=== PATIENT | female | born 1965 | race Caucasian/White ===

== ENCOUNTER 2019-04-05 03:42 | Inpatient (IN) | payer OTHER ==
[2019-04-05] VITALS (18 sets, daily range): BP systolic 82–126
[~2019-04-05] VITALS: Ht 167.6 cm; Wt 59.0 kg
--- NOTE | 2019-04-05 03:49 | NUR ---
Placed in room 2 . Placed on color television console monitor, blood pressure machine and pulse oximeter. To gown for exam. Side rails up.
--- NOTE | 2019-04-05 04:00 | NUR ---
Pt came to the ED for multiple sclerosis by sister for SOB. Reports that she awake about 2 AM this morning and she had some neck pain with SOB. Pt has a fever with diarrhea. No other complaints/injuries noted. Will cont. to monitor.
--- NOTE | 2019-04-05 04:02 | NUR ---
Medication reconciliation completed with information provided by patients sister. Any prior medication reconciliation on file was reviewed and corrected.
--- NOTE | 2019-04-05 04:10 | NUR ---
Per pts sister, she states that pt's blood pressure is usually low. ER MD made aware. He states, "Hang the levophed by her just in case it's needed." BP is 96/40.
[2019-04-05] MEDS ORDERED: NACL 0.9% 1,000 ML IV ONE ×2 (05:00→05:30)
[2019-04-05] MEDS ORDERED: ACETAMINOPHEN 500 MG TABLET PO ONE (05:00)
[2019-04-05] MEDS ORDERED: ACETAMINOPHEN 650 MG SUPP.RECT RC ONE (05:17)
[2019-04-05] MEDS ORDERED: VANCOMYCIN HCL 1,000 MG in NS 250 ML IV ONE (05:30)
[2019-04-05] MEDS ORDERED: PIPERACILLIN/TAZO 3.375 GM in NS 50 ML IV ONE (05:30)
[2019-04-05] MEDS ORDERED: AZITHROMYCIN 500 MG in NS 250 ML IV ONE (05:30)
[2019-04-05 05:47] LABS: MEAN CORPUSCULAR HEMOGLOBIN 30 pg (27-31)
[2019-04-05 05:53] LABS: HEMATOCRIT 33.1 % (36-48); MEAN CORPUSCULAR HGB CONC 33 % (32-36); MEAN CORPUSCULAR VOLUME 91 fL (79.0-98.0); PLATELET COUNT (AUTO) 101 K/uL (130-430); RED BLOOD CELL COUNT(AUTO) 3.65 MIL/uL (4.2-6.2); RED CELL DISTRIBUTION WIDTH 13.8 % (9.0-15.0)
[2019-04-05 05:59] LABS: CALCIUM 8.5 mg/dL (8.4-11.0); CREATININE 0.65 mg/dL (0.55-1.30); WHITE BLOOD COUNT (AUTO) 1.8 K/uL (4.8-10.8)
--- NOTE | 2019-04-05 05:59 | NUR ---
Critical Lab value of WBC 1.8. ER made aware.
[2019-04-05 06:04] LABS: ALBUMIN 2.6 g/dL (3.4-4.8); INR 1.1 (0.8-1.2); PROTHROMBIN TIME 10.6 SECS (9.5-12.5); TOTAL BILIRUBIN 2.8 mg/dL (0.0-1.0)
[2019-04-05 06:08] LABS: POTASSIUM 2.4 mmol/L (3.5-5.1)
[2019-04-05] MEDS ORDERED: NOREPINEPHRINE BITARTRATE 4 MG in NS 246 ML IV ONE (06:15)
[2019-04-05] MEDS ORDERED: PIPERACILLIN/TAZOBACTAM 3.375 GM/VIAL (ZOSYN) IV ONE (06:25)
[2019-04-05] MEDS ORDERED: VANCOMYCIN HCL 1000 MG/VIAL IV ONE (06:27)
[2019-04-05] MEDS ORDERED: AZITHROMYCIN 500 MG/VIAL (ZITHROMAX) IV ONE (06:27)
[2019-04-05] MEDS ORDERED: POTASSIUM CHLORIDE 20 MEQ TAB.PRT.SR PO ONE (06:45)
[2019-04-05] MEDS ORDERED: MAGNESIUM SULFATE 50 ML IV ONE (06:45)
[2019-04-05] MEDS ORDERED: KCL 40 mEq in 100 mL (PREMIX) 100 ML IV ONE (06:45)
--- NOTE | 2019-04-05 06:45 | NUR ---
# 16 FR Glasgow catheter with use of sterile technique. Immediate return of 0 cc yellow with sediment urine noted. Bedside drainage bag placed below level of bladder. Urine sample collected and sent to lab. Pt tolerated procedure well. Patient arrived with glasgow in place, changed due to standard of practice prior to admission. Patient unable to toilet self.
--- NOTE | 2019-04-05 06:50 | NUR ---
Unable to retrieve urine sample. No urine in glasgow bag.
--- NOTE | 2019-04-05 06:51 | NUR ---
Informed charge nurse and ER MD that we were unable to get urine due to pt urinating while glasgow was being placed. However, admit orders were put in.
[2019-04-05 06:54] LABS: ATYPICAL LYMPHOCYTES % 0 % (0-0); BAND % (MANUAL) 6 % (0-6); BASOPHILS % (MANUAL) 0 % (0-2); EOSINOPHILS % (MANUAL) 4 % (0-7); LYMPHOCYTES % (MANUAL) 7 % (20-46); MONOCYTES % (MANUAL) 5 % (0-11)
[2019-04-05] MEDS ORDERED: TERI14TA PO (07:00)
[2019-04-05] MEDS ORDERED: CALC200T47 PO (07:00)
[2019-04-05] MEDS ORDERED: [UNRECOGNIZED DRUG - OTHER] (07:00)
[2019-04-05] MEDS ORDERED: CHOL500037 PO (07:00)
[2019-04-05] MEDS ORDERED: ROSU10TA2 PO (07:00)
[2019-04-05] MEDS ORDERED: METH1POW38 PO (07:00)
[2019-04-05] MEDS ORDERED: ESCI10TA PO (07:00)
--- NOTE | 2019-04-05 07:01 | NUR ---
Medication reconciliation completed with information provided by FAMILY MEMBER. Any prior medication reconciliation on file was reviewed and corrected.
--- NOTE | 2019-04-05 07:15 | NUR ---
Opening Note Received plan of care via sbar from endorsing nurse Dexter VILLANUEVA.
[2019-04-05] MEDS ORDERED: NOREPINEPHRINE 4 MG/4 ML VIAL IV ONE ×2 (07:30→17:57)
--- NOTE | 2019-04-05 07:38 | NUR ---
Patient will be admitted to care of MD. Admitted to ICU unit. Will go to room 3. Belongings list completed. Summary report printed. Report will be given at bedside.
--- NOTE | 2019-04-05 07:45 | NUR ---
Patient will be admitted to care of Dr. Starr. Admitted to ICU unit. Will go to room 3 . Belongings list completed. Summary report printed. Report given at bedside to Avtar.
--- NOTE | 2019-04-05 07:45 | NUR ---
Transfer to ICU 3 via ACLS protocol. Licensed nurse present. IV present no signs or symptoms of infiltration.
--- NOTE | 2019-04-05 08:00 | NUR ---
ADMISSION NOTE Received patient from ER via gurney. Patient admitted with diagnosis of Urosepsis. Patient is awake, alert, oriented X 1. Patient oriented to hospital room, call light, toileting, pain management and safety-teach back done. Personal belongings checked and Belongings List documented. Call light within reach.
--- NOTE | 2019-04-05 08:06 | NUR ---
CONSULT PULMO. DR. CARRILLO CALLED SPOKE TO RENY DIALED [phone] ORDERED BY Balwinder WEST
--- NOTE | 2019-04-05 08:09 | NUR ---
CONSULT ID DR. FERNANDEZ CALLED SPOKE TO RENY DIALED [phone] ORDERED BY Balwinder WEST
[2019-04-05] MEDS: D5/0.45 NS 1,000 ML IV SCH ×3 (09:14→22:00)
[2019-04-05] MEDS ORDERED: LevALBUTEROL HCL 1.25 MG/0.5 ML *CONC.* VIAL.NEB (XOPENEX CONC.) INH PRN (09:30)
[2019-04-05] MEDS ORDERED: IPRATROPIUM BROM 0.5 MG/2.5 ML VIAL.NEB (ATROVENT) INH PRN (09:30)
--- NOTE | 2019-04-05 09:30 | NUR ---
Patient blood pressure 182/115 and HR of 144. Reported to Dr. Allen and received orders for 5 mg Labetalol IVP once. Also requested PT to be NPO for now.
--- NOTE | 2019-04-05 09:39 | NUR ---
KATE ALONSO. CALLED LEFT A VOICE MESSAGE FOR ISATU DIALED [phone]
[2019-04-05] MEDS ORDERED: LABETALOL 100 MG/ 20ML VIAL IVP ONE (09:45)
[2019-04-05] MEDS ORDERED: LORazepam 2 MG/ML VIAL IVP PRN (11:45)
[2019-04-05] MEDS ORDERED: ONDANSETRON HCL 4 MG/2 ML VIAL IVP PRN (11:45)
[2019-04-05] MEDS ORDERED: [UNRECOGNIZED DRUG - OTHER] SCH (11:45)
[2019-04-05] MEDS ORDERED: NON-FORMULARY MEDICATION (Cholecalciferol* (Vitamin D3*) 50,000 UNIT) PO SCH (11:45)
--- NOTE | 2019-04-05 11:54 | NUR ---
CONSULT HEMATOLOGY DR. PATHAK CALLED SPOKE TO KAROLINA DIALED [phone] ORDERED BY Balwinder WEST
[2019-04-05] MEDS ORDERED: PIPERACILLIN/TAZO 3.375/DEX-IS 50 ML IV SCH (12:00)
[2019-04-05] MEDS: CEFEPIME 1 GM in D5W 50 ML IV SCH ×2 (12:24→20:53)
[2019-04-05] MEDS ORDERED: NS 500 ML IV ONE (12:30)
[2019-04-05] MEDS: LevALBUTEROL HCL 1.25 MG/0.5 ML *CONC.* VIAL.NEB (XOPENEX CONC.) INH SCH ×2 (13:41→19:46)
[2019-04-05] MEDS: IPRATROPIUM BROM 0.5 MG/2.5 ML VIAL.NEB (ATROVENT) INH SCH ×2 (13:41→19:46)
--- NOTE | 2019-04-05 14:09 | NUR ---
Called Dr. James Bertrand to report elevated HR of 148. Received orders for Cardizem drip start at 15 mg with goal of keeping heart rate < 110.
--- NOTE | 2019-04-05 14:32 | NUR ---
Called Dr. Jane to report the malfunction of the right IJ tata Cath. Per Dr. Jane he will not be able to make it today but will try to make it tomorrow night.
[2019-04-05] MEDS: DILTIAZEM HCL 125 MG in D5W 100 ML IV SCH ×2 (14:41→22:01)
--- NOTE | 2019-04-05 16:47 | NUR ---
S.T. SWALLOW EVAL SWALLOW EVAL COMPLETED. SISTER PRESENT. PT PRESENTS W/ MOD-SEV OROPHARYNGEAL DYSPHAGIA W/ EXTREMELY DELAYED BOLUS TRANSFER AND SWALLOW INITIATION. NO S/S OF ASPIRATION BUT RISK PRESENT D/T AFOREMENTIONED DELAYS. REC: NPO - ALTERNATIVE METHOD FOR FEEDING. RE-EVAL IN A DAY OR TWO INDICATED. NURSE MARY KAY NOTIFIED. G8996 CL G8997 CL G8998 CL NOMS LEVEL 3
[2019-04-05] MEDS: NOREPINEPHRINE BITARTRATE 4 MG in D5W 246 ML IV PRN (17:58)
--- NOTE | 2019-04-05 19:20 | NUR ---
PM ASSESSMENT Pt in bed with eyes open resting comfortably, no signs of acute distress or discomfort noted. Family at bedside. Pt on 2L via NC, tolerating well with O2 sats @ 96% and even and unlabored breathing. Pt has a R hand 20g infusing cardizem drip and levophed drip and a R AC 20g infusing D5 1/2 NS. Moody cath noted draining urine to gravity. SCD's noted to bilateral lower extremities. Bed is locked and in lowest position, call light within reach, will cont to monitor pt.
--- NOTE | 2019-04-05 19:23 | NUR ---
Closing Note provided plan of care via sbar to receiving nurse Wyatt VILLANUEVA.
[2019-04-05] MEDS: metroNIDAZOLE 250 mg/NS 50 ML IV SCH (21:59)
--- NOTE | 2019-04-05 22:10 | NUR ---
Pt in bed with eyes closed resting comfortably, no signs of acute distress or discomfort noted. Bed is locked and in lowest position, call light within reach, will cont to monitor.
--- NOTE | 2019-04-05 22:10 | NUR ---
Offered CHG bath to pt and educated family member on the importance of a CHG bath. Pt's family member stated that she had a bath yesterday. Pt's family member asked the pt if she wanted a bath tonight and pt nodded no. Pt's family member then stated "I think she'll be ok for tonight, maybe just wait until the day". Will cont to monitor pt.
[2019-04-05 22:22] LABS: BILIRUBIN,URINE 1+ (NEGATIVE); BLOOD, URINE 3+ (NEGATIVE); CLARITY/URINE CLOUDY (CLEAR); COLOR,URINE YELLOW (YELLOW); GLUCOSE,URINE NEGATIVE (NEGATIVE); KETONES,URINE NEGATIVE (NEGATIVE); LEUKOCYTE ESTERASE ,URINE 3+ (NEGATIVE); NITRITE, URINE POSITIVE (NEGATIVE); PROTEIN URINE 2+ (NEGATIVE); UROBILINOGEN,URINE 0.2 (0.2-1.0)
[2019-04-05 22:58] LABS: BACTERIA,URINE MANY /HPF (None Seen); MUCUS,URINE None Seen /LPF (None Seen); RBC,URINE >100 /HPF (0-3); URINE AMORPHOUS PHOSPHATES 3+ /HPF (None Seen); WBC,URINE >100 /HPF (0-3)
[2019-04-06] VITALS (27 sets, daily range): BP systolic 84–152
[2019-04-06] MEDS: LevALBUTEROL HCL 1.25 MG/0.5 ML *CONC.* VIAL.NEB (XOPENEX CONC.) INH SCH ×4 (00:24→19:58)
[2019-04-06] MEDS: IPRATROPIUM BROM 0.5 MG/2.5 ML VIAL.NEB (ATROVENT) INH SCH ×4 (00:24→19:58)
--- NOTE | 2019-04-06 02:13 | NUR ---
Pt in bed with eyes closed resting comfortably. No signs of acute distress or discomfort noted. Pt repositioned at this time, pt tolerated well. Will cont to monitor pt.
[2019-04-06] MEDS: metroNIDAZOLE 250 mg/NS 50 ML IV SCH ×3 (05:13→22:35)
[2019-04-06] MEDS: D5/0.45 NS 1,000 ML IV SCH (05:13)
[2019-04-06] MEDS: NOREPINEPHRINE BITARTRATE 4 MG in D5W 246 ML IV PRN ×2 (05:15→13:45)
[2019-04-06] MEDS: DILTIAZEM HCL 125 MG in D5W 100 ML IV SCH ×3 (05:16→22:35)
[2019-04-06 05:47] LABS: BASOPHILS # (AUTO) 0.1 K/uL (0.0-0.2); BASOPHILS % (AUTO) 0.3 % (0.0-2.0); EOSINOPHILS # (AUTO) 0.3 K/uL (0.0-0.4); EOSINOPHILS % (AUTO) 1.6 % (0.0-4.0); HEMATOCRIT 26.8 % (36-48); HEMOGLOBIN 8.8 g/dL (12.0-16.0); LYMPHOCYTES # (AUTO) 0.6 K/uL (1.0-5.5); LYMPHOCYTES % (AUTO) 2.9 % (20.5-51.5); MEAN CORPUSCULAR HEMOGLOBIN 30 pg (27-31); MEAN CORPUSCULAR HGB CONC 33 % (32-36); MEAN CORPUSCULAR VOLUME 91 fL (79.0-98.0); MONOCYTES # (AUTO) 0.9 K/uL (0.0-1.0); MONOCYTES % (AUTO) 4.7 % (1.7-9.3); NEUTROPHILS # (AUTO) 17.4 K/uL (1.8-7.7); NEUTROPHILS % (AUTO) 90.5 % (40.0-70.0); PLATELET COUNT (AUTO) 81 K/uL (130-430); RED BLOOD CELL COUNT(AUTO) 2.95 MIL/uL (4.2-6.2); RED CELL DISTRIBUTION WIDTH 14.1 % (9.0-15.0); RETICULOCYTE COUNT 0.9 % (0.5-1.5); WHITE BLOOD COUNT (AUTO) 19.3 K/uL (4.8-10.8)
--- NOTE | 2019-04-06 05:55 | NUR ---
CHG CHG bath given to pt at this time due to glasgow cath leaking. Chucks changed, dotty care, skin care and glasgow cath care performed. Pt tolerated procedure well. Will cont to monitor pt.
[2019-04-06 06:03] LABS: ALBUMIN 2.1 g/dL (3.4-4.8); CALCIUM 7.4 mg/dL (8.4-11.0); CREATININE 0.77 mg/dL (0.55-1.30); TOTAL BILIRUBIN 3.4 mg/dL (0.0-1.0)
--- NOTE | 2019-04-06 06:10 | NUR ---
CABEZAS CATH: # 16 FR Cabezas catheter with 10 cc bulb inserted with use of sterile technique. Bulb inflated with 10 cc sterile water. Immediate return of urine noted. Bedside drainage bag placed below level of bladder. Pt tolerated procedure well. Will cont to monitor pt.
[2019-04-06 06:22] LABS: POTASSIUM 2.6 mmol/L (3.5-5.1)
--- NOTE | 2019-04-06 06:50 | NUR ---
Dr. Stubbs in to see pt. New orders received, will endorse orders to juan VILLANUEVA.
[2019-04-06 06:55] LABS: C-REACTIVE PROTEIN QUANT 26.4 mg/dL (0-0.5)
[2019-04-06 07:00] LABS: ERYTHROCYTE SEDIMENTATION RATE 54 MM/HR (0-20)
[2019-04-06] MEDS ORDERED: KCL 20 mEq in 100 mL (PREMIX) 100 ML IV ONE ×2 (07:00→10:00)
--- NOTE | 2019-04-06 07:10 | NUR ---
ENDORSEMENT Report given to oncoming dayshift RN and pt care was endorsed. No signs of acute distress or discomfort noted.
--- NOTE | 2019-04-06 07:30 | NUR ---
OPENING NOTE: RECEIVED PATIENT FROM NOC RNMORENA. PATIENT RESTING IN BED WITH HOB ELEVATED, PATIENT AROUSABLE TO LIGHT STIMULI, VERBALLY RESPONSIVE. PATIENT ON 2L O2 NC AND SATURATING WITHIN NORMAL LIMITS. NO ACUTE SIGNS OF RESP DISTRESS, NO SOB. BREATHING EVEN AND UNLABORED. CABEZAS CATH INTACT AND PATENT, POSITIONED TO DRAIN TOWARDS GRAVITY. IV SITES PATENT AND INTACT, NO REDNESS/SWELLING/PAIN TO SITE. BED AT LOWEST POSITION, CALL LIGHT IN REACH, SIDE RAILX3, CONTINUE TO MONITOR.
[2019-04-06] MEDS: CALCIUM 500 MG/TAB PO SCH (08:54)
[2019-04-06] MEDS: ATORVASTATIN 20 MG TABLET PO SCH (08:54)
[2019-04-06] MEDS: CITALOPRAM HYDROBROMIDE 20 MG TABLET PO SCH (08:54)
[2019-04-06] MEDS: CEFEPIME 1 GM in D5W 50 ML IV SCH ×2 (08:54→21:01)
[2019-04-06] MEDS ORDERED: METHENAMINE 1 GM PO SCH (09:00)
[2019-04-06] MEDS ORDERED: TERIFLUNOMIDE 14 MG PO SCH (09:00)
[2019-04-06] MEDS ORDERED: HYDROCORTISONE SOD SUCC 100 MG/2 ML VIAL IVP ONE (10:00)
--- NOTE | 2019-04-06 10:16 | NUR ---
DR. RODRIGUEZ PAGED: DR. Maryan RODRIGUEZ PAGED IN REGARDS TO PATIENT'S INCREASE HEART RATE. AWAITING CALL BACK.
--- NOTE | 2019-04-06 10:25 | NUR ---
Nutrition Update Eric Scale 14 noted. Pt admitted for septic shock. Diet: NPO BMI: 21 kg/m2 RD to follow per nutrition care standards.
[2019-04-06] MEDS: NACL 0.9% 1,000 ML IV SCH ×2 (10:52→21:00)
--- NOTE | 2019-04-06 11:00 | NUR ---
DR. RODRIGUEZ PAGED AGAIN: DR. Abraham RODRIGUEZ PAGED FOR A SECOND TIME. AWAITING CALL BACK.
--- NOTE | 2019-04-06 11:23 | NUR ---
Auth # [id number] UR/CM/Insurance Note Digna with [facility] [phone] called for clinical info. Information provided and all questions answered. He is aware pt is on 2 drips, abx coverage and VS. Auth # [id number] given to us by Digna VILLANUEVA.
--- NOTE | 2019-04-06 12:15 | NUR ---
DR. RODRIGUEZ CALLED: DR. Abraham RODRIGUEZ CALLED BACK. DR. RODRIGUEZ AWARE THAT PATIENT'S HEART RATE INCREASED TO 140'S AND HAS TRENDED DOWN TO CURRENT HEAR RATE - 126 WITH BLOOD PRESSURE - 123/56, HE IS ALSO AWARE THAT PATIENT IS ON LEVOPHED AND PATIENT IS ON CARDIZEM DRIP AT MAX DOSE AT 15MG/HR. PER DR. RODRIGUEZ "THERE'S NOT MUCH WE CAN DO FOR IT SINCE SHE IS ALREADY ON CARDIZEM DRIP AND MAX OUT. HEART RATE OF 130'S IS FINE, CONTINUE TO MONITOR AND CONTINUE THE CARDIZEM DRIP..
--- NOTE | 2019-04-06 13:49 | NUR ---
Dietitian Recommendations * Consider ST swallow re-eval if/when medically appropriate * Advance diet as per ST recommendation LP, RD Please refer to Nutrition Assessment for details. Addendum: 04/06/19 at [address] Amended: Links added.
[2019-04-06] MEDS: HYDROCORTISONE SOD SUCC 100 MG/2 ML VIAL IVP SCH ×2 (14:32→22:35)
--- NOTE | 2019-04-06 15:15 | NUR ---
Freelance Writer: met with pt in ICU to conduct a Discharge Planning Assessment. SINGING TELEGRAM PERFORMER met with pt. bedside. She had her sister/caregiver present and was able to communicate that her sister could stay in the room during this discharge planning assessment. Pt. was pleasant, and was limited in her ability to communicate, but was still able to participate minimally. Her sister, Juliann Milton who was present , was helpful in obtaining info. Pt. stated she did want to have paperwork to assign a DPOA. SINGING TELEGRAM PERFORMER told both pt. and sister how to fill out the form including info on the witness' or a notary. Pts. sister stated pt. is unable to use her legs from the waist down. Pt. has a power wheelchair and upon discharge, pt would be returning to home where she resides with her sister/caregiver. SINGING TELEGRAM PERFORMER will remain available as needed.
--- NOTE | 2019-04-06 16:02 | NUR ---
Consult called to Dr. Llanos. Spoke with Deirdre.
--- NOTE | 2019-04-06 16:16 | NUR ---
S.T. SWALLOW EVAL SWALLOW RE-EVAL COMPLETED. PT PRESENTS W/ MOD OROPHARYNGEAL DYSPHAGIA W/ DELAYED BOLUS TRANSFER AND DELAYED SWALLOW (THOUGH IMPROVED FROM YESTERDAY). NO S/S OF ASPIRATION. REC: PUREE DIET. THIN LIQUIDS OK. VIDEOFLUOROSCOPIC SWALLOW STUDY ON TUESDAY. AWAITING ORDER. NURSE RESSIE NOTIFIED. G8996 CK G8997 CK G8998 CK NOMS LEVEL 4
--- NOTE | 2019-04-06 17:18 | NUR ---
CALLED ISATU - SPEECH THERAPIST: CALLED ISATU THE NUMBER SHE PROVIDED ME ([phone]), LEFT A VOICEMAIL INFORMING HER THAT THE VIDEO SWALLOW ORDER HAS BEEN PLACE FOR Tuesday04/09/19.
--- NOTE | 2019-04-06 19:10 | NUR ---
PM SHIFT ASSESSMENT Pt is alert and oriented. O2 via NC @ 3L, RR even and unlabored. SR noted on monitor. Skin warm and dry. IVF infusing, no signs of infiltration noted. Safety precautions in place. Call light within reach. Will continue to monitor.
--- NOTE | 2019-04-06 19:26 | NUR ---
CLOSING NOTE: ENDORSED PLAN OF CARE TO LINDA MORALES RN. ALL QUESTIONS ANSWERED. PATIENT RESTING IN BED, AWAKE AND ALERT. NO ACUTE SIGNS OF RESP DISTRESS, NO SOB. BREATHING EVEN AND UNLABORED.
[2019-04-06] MEDS ORDERED: DILTIAZEM HCL 125 MG/25 ML VIAL IV ONE ×2 (22:37→22:39)
--- NOTE | 2019-04-06 23:33 | NUR ---
ENDORSEMENT Pt care endorsed to KAY Grissom using nursing SBAR.
[2019-04-07] VITALS (24 sets, daily range): BP systolic 92–126
--- NOTE | 2019-04-07 | NUR ---
i have assumed the care of the pt.pt.presents dopamine;levophed;drips infusing.dopamine-drip;infusing:administering;15mg/hr; rate;15ml/hr.the levophed-drip is administering;3mcq/kg/min.rate;11ml/hr.the h/r,b/p values are w/in normal limits.pt.presents o2 therapy;via nasal cannulae;o2 therapy administered@the rate2l/min.02-sat%=98%.breathing pattern/character slight labored. pt.presents glasgow cath;intact;patent;urine content presents.pt.assessed for cleanliness.pt.repositioned.no c/o pain,nausea.call light/ telephone placed w/in reach of the pt.
[2019-04-07] MEDS: LevALBUTEROL HCL 1.25 MG/0.5 ML *CONC.* VIAL.NEB (XOPENEX CONC.) INH SCH ×4 (00:24→19:39)
[2019-04-07] MEDS: IPRATROPIUM BROM 0.5 MG/2.5 ML VIAL.NEB (ATROVENT) INH SCH ×4 (00:25→19:39)
--- NOTE | 2019-04-07 02:00 | NUR ---
pt.assessed.pt.presents quiescent affect;calm,somnolent.iv access intact;patent;dopamine/levophed-drips infusing. h/r ,b/p values w/in normal limits.iv access intact;patent.glasgow cath assessed intact;patent.respiratory status stable. o2sat%=98%pt.assessed for cleanliness.pt.repositioned.call,light/telephone placed w/in reach of the pt. Addendum: 04/07/19 at 0520 by Jaciel Fletcher RN no c/o pain,nausea.
--- NOTE | 2019-04-07 04:00 | NUR ---
pt.assessed pt.presents quiescent affect;calm,somnolent.iv access intact;patent;dopamine/levophed-drips infusing. pt.assessed for cleanliness.pt.repositioned.glasgow cath intact;patent;urine content present.call light/telephone placed w/in the reach of the pt. Addendum: 04/07/19 at 0512 by Jaciel Fletcher RN the h/r,b/p values w/in normal limits. Addendum: 04/07/19 at 0521 by Jaciel Fletcher RN o2-sat%=98%.breathing pattern/character slight labored;02-sat%=98%. no c/o pain,nausea.
[2019-04-07 05:43] LABS: EOSINOPHILS # (AUTO) 0.2 K/uL (0.0-0.4); EOSINOPHILS % (AUTO) 1.5 % (0.0-4.0); HEMATOCRIT 25.7 % (36-48); HEMOGLOBIN 8.5 g/dL (12.0-16.0); LYMPHOCYTES # (AUTO) 0.4 K/uL (1.0-5.5); LYMPHOCYTES % (AUTO) 2.4 % (20.5-51.5); MEAN CORPUSCULAR HEMOGLOBIN 30 pg (27-31); MEAN CORPUSCULAR HGB CONC 33 % (32-36); MEAN CORPUSCULAR VOLUME 91 fL (79.0-98.0); MONOCYTES # (AUTO) 0.4 K/uL (0.0-1.0); MONOCYTES % (AUTO) 2.5 % (1.7-9.3); NEUTROPHILS # (AUTO) 14.9 K/uL (1.8-7.7); NEUTROPHILS % (AUTO) 93.6 % (40.0-70.0); PLATELET COUNT (AUTO) 55 K/uL (130-430); RED BLOOD CELL COUNT(AUTO) 2.82 MIL/uL (4.2-6.2); RED CELL DISTRIBUTION WIDTH 14.1 % (9.0-15.0)
[2019-04-07] MEDS: NACL 0.9% 1,000 ML IV SCH ×2 (06:00→14:42)
[2019-04-07 06:07] LABS: FOLATE (FOLIC ACID) 7.9 ng/mL (>3.0)
[2019-04-07] MEDS: DILTIAZEM HCL 125 MG in D5W 100 ML IV SCH ×3 (06:15→14:43)
[2019-04-07] MEDS: metroNIDAZOLE 250 mg/NS 50 ML IV SCH ×3 (06:17→22:33)
[2019-04-07] MEDS: HYDROCORTISONE SOD SUCC 100 MG/2 ML VIAL IVP SCH ×3 (06:18→22:32)
[2019-04-07 06:19] LABS: ALBUMIN 1.9 g/dL (3.4-4.8); CALCIUM 7.5 mg/dL (8.4-11.0); CREATININE 0.85 mg/dL (0.55-1.30); TOTAL BILIRUBIN 3.1 mg/dL (0.0-1.0)
[2019-04-07 06:39] LABS: POTASSIUM 2.8 mmol/L (3.5-5.1)
--- NOTE | 2019-04-07 07:20 | NUR ---
Received patient from [facility] shift nurse. In no acute distress.
--- NOTE | 2019-04-07 08:05 | NUR ---
MD Allen paged for potassium of 2.8.
[2019-04-07] MEDS: ATORVASTATIN 20 MG TABLET PO SCH (08:12)
[2019-04-07] MEDS: CALCIUM 500 MG/TAB PO SCH (08:12)
[2019-04-07] MEDS: CITALOPRAM HYDROBROMIDE 20 MG TABLET PO SCH (08:12)
[2019-04-07] MEDS: CEFEPIME 1 GM in D5W 50 ML IV SCH ×2 (08:12→20:28)
[2019-04-07] MEDS: NOREPINEPHRINE BITARTRATE 4 MG in D5W 246 ML IV PRN (08:15)
--- NOTE | 2019-04-07 08:20 | NUR ---
MD Allen new order k-rider 40 meq IV over 4 hours.
[2019-04-07] MEDS: KCL 20 mEq in 100 mL (PREMIX) 100 ML IV SCH ×2 (10:09→14:46)
[2019-04-07] MEDS ORDERED: DIATR MEGLU/DIATRIZ SOD 30 ML SOLUTION PO ONE (10:41)
--- NOTE | 2019-04-07 12:03 | NUR ---
Sister Juliann reported patient has a bowel regiment at home of getting a dulcolax suppository every other day, reported to MD Allen. MD Allen new order dulcolax 10 mg suppository daily PRN. Orders placed.
[2019-04-07] MEDS ORDERED: FUROSEMIDE 20 MG/2 ML VIAL IVP ONE (12:30)
[2019-04-07] MEDS ORDERED: POTASSIUM CHLORIDE 20 MEQ TAB.PRT.SR PO ONE (12:30)
[2019-04-07] MEDS ORDERED: IOHEXOL 100 ML IV ONE (15:30)
--- NOTE | 2019-04-07 19:10 | NUR ---
PM SHIFT ASSESSMENT Pt is alert and oriented. O2 via NC @ 2L, RR even and unlabored. SR noted on monitor. Skin warm and dry. IVF infusing, no signs of infiltration noted. Safety precautions in place. Call light within reach. Will continue to monitor.
--- NOTE | 2019-04-07 19:34 | NUR ---
Endorsed patient to NOC shift nurse and gave report. Patient in no acute distress.
--- NOTE | 2019-04-07 19:34 | NUR ---
Endorsed patient to NOC shift nurse and gave report. Patient in no acute distress.
[2019-04-07] MEDS: BISACODYL 10 MG/SUPPOSITORY RC PRN (20:28)
[2019-04-07] MEDS: DILTIAZEM HCL 30 MG TABLET PO SCH (22:32)
[2019-04-08] VITALS (20 sets, daily range): BP systolic 92–139
[2019-04-08] MEDS: IPRATROPIUM BROM 0.5 MG/2.5 ML VIAL.NEB (ATROVENT) INH SCH ×4 (01:00→20:07)
[2019-04-08] MEDS: LevALBUTEROL HCL 1.25 MG/0.5 ML *CONC.* VIAL.NEB (XOPENEX CONC.) INH SCH ×4 (01:00→20:08)
[2019-04-08] MEDS: NACL 0.9% 1,000 ML IV SCH (02:15)
[2019-04-08] MEDS: metroNIDAZOLE 250 mg/NS 50 ML IV SCH ×3 (05:15→21:09)
[2019-04-08] MEDS: HYDROCORTISONE SOD SUCC 100 MG/2 ML VIAL IVP SCH ×3 (05:15→21:07)
[2019-04-08] MEDS: DILTIAZEM HCL 125 MG in D5W 100 ML IV SCH (05:16)
[2019-04-08] MEDS: DILTIAZEM HCL 30 MG TABLET PO SCH ×3 (05:16→21:08)
[2019-04-08 05:48] LABS: BASOPHILS % (AUTO) 0.1 % (0.0-2.0); LYMPHOCYTES # (AUTO) 0.4 K/uL (1.0-5.5); LYMPHOCYTES % (AUTO) 3.5 % (20.5-51.5); MEAN CORPUSCULAR HEMOGLOBIN 30 pg (27-31); MEAN CORPUSCULAR HGB CONC 33 % (32-36); MEAN CORPUSCULAR VOLUME 89 fL (79.0-98.0); MONOCYTES # (AUTO) 0.4 K/uL (0.0-1.0); MONOCYTES % (AUTO) 3.6 % (1.7-9.3); NEUTROPHILS # (AUTO) 11.6 K/uL (1.8-7.7); NEUTROPHILS % (AUTO) 92.8 % (40.0-70.0); PLATELET COUNT (AUTO) 53 K/uL (130-430); WHITE BLOOD COUNT (AUTO) 12.5 K/uL (4.8-10.8)
[2019-04-08 06:12] LABS: CALCIUM 7.9 mg/dL (8.4-11.0); CREATININE 0.58 mg/dL (0.55-1.30); POTASSIUM 3.1 mmol/L (3.5-5.1); TOTAL BILIRUBIN 1.5 mg/dL (0.0-1.0)
[2019-04-08 06:16] LABS: PROTHROMBIN TIME 9.8 SECS (9.5-12.5)
[2019-04-08 06:34] LABS: C-REACTIVE PROTEIN QUANT 13.6 mg/dL (0-0.5)
[2019-04-08 07:06] LABS: TOTAL IRON BIND. CAPACITY 135 ug/dL (250-450)
--- NOTE | 2019-04-08 07:20 | NUR ---
ENDORSEMENT Pt care endorsed to KAY Khan using nursing SBAR.
--- NOTE | 2019-04-08 07:43 | NUR ---
Opening Note Patient received sleeping in bed and is connected to monitor with NSR. Patient on 1L nasal cannula breathing evenly and unlabored, no signs of distress noted. Patient has a IDRIS PICC line infusing NS @ 100 ml/hr. Patient has a glasgow catheter in place draining yellow urine. Skin intact. Safety precautions enforced.
[2019-04-08 07:57] LABS: ERYTHROCYTE SEDIMENTATION RATE 21 MM/HR (0-20)
[2019-04-08] MEDS: CITALOPRAM HYDROBROMIDE 20 MG TABLET PO SCH (08:53)
[2019-04-08] MEDS: CEFEPIME 1 GM in D5W 50 ML IV SCH ×2 (08:53→21:06)
[2019-04-08] MEDS: CALCIUM 500 MG/TAB PO SCH (08:55)
[2019-04-08] MEDS: ATORVASTATIN 20 MG TABLET PO SCH (08:56)
--- NOTE | 2019-04-08 09:45 | NUR ---
MD Opal Allen @ [facility] for examination. No new orders received. Addendum: 04/08/19 at 1446 by Erin Garcia RN Orders received and carried out.
[2019-04-08] MEDS ORDERED: POTASSIUM CHLORIDE 20 MEQ TAB.PRT.SR PO ONE (10:00)
[2019-04-08] MEDS: 0.45% NACL 1,000 ML IV SCH (10:49)
--- NOTE | 2019-04-08 11:04 | NUR ---
MD Rounds Dr. Henson @ bedside for examination. No new orders received.
--- NOTE | 2019-04-08 12:00 | NUR ---
RN Rounds Patient resting in bed @ this time. Patient does not complain of pain. No signs of distress noted.
--- NOTE | 2019-04-08 12:20 | NUR ---
MD Rounds Dr. Starr @ bedside for examination.
--- NOTE | 2019-04-08 18:50 | NUR ---
Transfer Patient transferred to telemetry 102B and given report to insulation hoseman using SBAR format. Patient transferred via gurney. Patient tolerated transfer well. No signs of distress noted.
--- NOTE | 2019-04-08 22:40 | NUR ---
Patient in bed. Turned repositioned q2. No acute distress noted. Will continue to monitor.
[2019-04-09 00:04] VITALS: BP_SYST 124
[2019-04-09] MEDS: IPRATROPIUM BROM 0.5 MG/2.5 ML VIAL.NEB (ATROVENT) INH SCH ×4 (00:58→19:47)
[2019-04-09] MEDS: LevALBUTEROL HCL 1.25 MG/0.5 ML *CONC.* VIAL.NEB (XOPENEX CONC.) INH SCH ×4 (00:59→19:47)
[2019-04-09] MEDS: metroNIDAZOLE 250 mg/NS 50 ML IV SCH (04:33)
[2019-04-09] MEDS: HYDROCORTISONE SOD SUCC 100 MG/2 ML VIAL IVP SCH ×2 (04:34→21:48)
[2019-04-09] MEDS: DILTIAZEM HCL 30 MG TABLET PO SCH ×3 (04:37→21:47)
--- NOTE | 2019-04-09 05:19 | NUR ---
Turned q2. Iv infusing without. No acute distress noted. Will continue to monitor.
--- NOTE | 2019-04-09 07:08 | NUR ---
RN OPENING NOTE PATIENT IS AWAKE AND ALERT, LAYING IN BED NO SIGNS OF ANY DISTRESS, BREATHING IS EQUAL AND NON LABORED. PATIENT HAS NAGEL WITH HER EDUCATED TO RING FOR ASSISTANCE DUE TO PATIENT IS UNABLE TO PUSH THE CALL LIGHT. PATIENT HAS ALL SAFETY PRECAUTIONS IN PLACE. PATIENT HAS NO COMPLAINTS AT THIS TIME. REPORT WAS ENDORSE BY NIGHT NURSE AT BEDSIDE.
[2019-04-09 07:27] LABS: BASOPHILS % (AUTO) 0.2 % (0.0-2.0); EOSINOPHILS % (AUTO) 0.2 % (0.0-4.0); HEMATOCRIT 26.2 % (36-48); HEMOGLOBIN 8.7 g/dL (12.0-16.0); LYMPHOCYTES # (AUTO) 0.7 K/uL (1.0-5.5); LYMPHOCYTES % (AUTO) 7.2 % (20.5-51.5); MEAN CORPUSCULAR HEMOGLOBIN 30 pg (27-31); MEAN CORPUSCULAR HGB CONC 33 % (32-36); MEAN CORPUSCULAR VOLUME 90 fL (79.0-98.0); MONOCYTES # (AUTO) 0.8 K/uL (0.0-1.0); MONOCYTES % (AUTO) 7.9 % (1.7-9.3); NEUTROPHILS # (AUTO) 8.3 K/uL (1.8-7.7); NEUTROPHILS % (AUTO) 84.5 % (40.0-70.0); PLATELET COUNT (AUTO) 65 K/uL (130-430); RED BLOOD CELL COUNT(AUTO) 2.93 MIL/uL (4.2-6.2); RED CELL DISTRIBUTION WIDTH 13.8 % (9.0-15.0); WHITE BLOOD COUNT (AUTO) 9.8 K/uL (4.8-10.8)
[2019-04-09 07:30] LABS: C-REACTIVE PROTEIN QUANT 6.5 mg/dL (0-0.5); CALCIUM 7.9 mg/dL (8.4-11.0); CREATININE 0.52 mg/dL (0.55-1.30); POTASSIUM 3.4 mmol/L (3.5-5.1); TOTAL BILIRUBIN 1.4 mg/dL (0.0-1.0)
[2019-04-09 08:20] VITALS: BP_SYST 127
[2019-04-09 08:28] LABS: ERYTHROCYTE SEDIMENTATION RATE 18 MM/HR (0-20)
[2019-04-09] MEDS: CEFEPIME 1 GM in D5W 50 ML IV SCH ×2 (08:39→21:48)
[2019-04-09] MEDS: 0.45% NACL 1,000 ML IV SCH (08:39)
[2019-04-09] MEDS: BISACODYL 10 MG/SUPPOSITORY RC PRN (08:40)
[2019-04-09] MEDS: CALCIUM 500 MG/TAB PO SCH (08:40)
[2019-04-09] MEDS: ATORVASTATIN 20 MG TABLET PO SCH (08:40)
[2019-04-09] MEDS: CITALOPRAM HYDROBROMIDE 20 MG TABLET PO SCH (08:40)
--- NOTE | 2019-04-09 08:46 | NUR ---
MEDICATION PATIENT SCHEDULED MEDICATION GIVEN PER ORDER SPOKE WITH [facility] RENETTA STATES ITS OK TO GIVE PO MEDICATION WITH A SMALL SIP OF WATER. PATIENT TOLERATED WELL. PATIENTS SISTER IS AT BED SIDE. PATIENT HAS NO COMPLAINTS AT THIS TIME. ALL SAFETY PRECAUTIONS IN PLACE. ROBE IS WITH PATIENT. FAMILY EDUCATED CATALYST SUPERVISOR LIGHT FOR ASSISTANCE. PATIENT HAS ALL SAFETY PRECAUTIONS IN PLACE. NO OTHER NEEDS AT THIS TIME. RENETTA FROM [facility] STATES SHE WILL DO HIDA SCAN AROUND 1030 TODAY. PATIENT AND FAMILY MADE AWARE.
[2019-04-09] MEDS ORDERED: POTASSIUM CHLORIDE 20 MEQ TAB.PRT.SR PO ONE (09:30)
--- NOTE | 2019-04-09 10:06 | NUR ---
MEDICATION PATIENTS SCHEDULED MEDICATION GIVEN ORDERED. PATIENT TOLERATED WELL. PATIENTS FAMILY IS AT BEDSIDE. PATIENT HAS ALL SAFETY PRECAUTIONS IN PLACE. CALL NAGEL IS WITH PATIENT. PATIENT HAS NO COMPLAINTS AT THIS TIME. NO OTHER NEEDS AT THIS TIME. WILL CONTINUE TO MONITOR.
--- NOTE | 2019-04-09 10:30 | NUR ---
PATIENT TRANSFERRED TO [facility] VIA GURNEY. NO SIGNS OF DISTRESS.
--- NOTE | 2019-04-09 12:10 | NUR ---
PATIENT HAS RETURNED, FROM HIDA SCAN, BREATHING IS EQUAL AND NON LABORED. PATIENT HAS ALL SAFETY PRECAUTIONS IN PLACE. PATIENT HAS NO COMPLAINTS AT THIS TIME. FAMILY IS AT BEDSIDE. PATIENT FAMILY IS FEEDING HER LUNCH . PATIENT IS TOLERATING WELL. PATIENT EDUCATED PSYCHIC READER LIGHT AND NAGEL IS WITH PATIENT. PATIENT HAS NO OTHER NEEDS AT THIS TIME. WILL CONTINUE TO MONITOR.
[2019-04-09] MEDS ORDERED: BARIUM SULFATE 135 ML SUSP.RECON (E-Z-HD) PO ONE (13:42)
--- NOTE | 2019-04-09 14:20 | NUR ---
MEDICATION PATIENTS SCHEDULED MEDICATION GIVEN ORDERED. PATIENT IS AWAKE AND ALERT SITTING UP IN BED. SISTER IS AT BED SIDE. PATIENT AND FAMILY EDUCATED ON NAGEL FOR ASSISTANCE. ALL SAFETY PRECAUTIONS IN PLACE. NO OTHER NEEDS AT THIS TIME. PATIENT HAS NO COMPLAINTS AT THIS TIME.
--- NOTE | 2019-04-09 15:40 | NUR ---
S.T. VIDEOFLUOROSCOPIC SWALLOW STUDY (VFSS) VFSS COMPLETED. PT PRESENTS W/ ML-MOD ORAL AND MOD PHARYNGEAL DYSPHAGIA CHARACTERIZED BY ML-MOD PROLONGED MASTICATION AND BOLUS TRANSFER W/ ML-MOD DELAYED SWALLOW AND ML PHARYNGEAL RESIDUE FOR MECH SOFT. SILENT ASPIRATION ON THIN LIQUIDS. REC: MECH SOFT FINELY CHOPPED DIET. NECTAR THICK LIQUIDS. RESULTS AND RECOMMENDATIONS DISCUSSED W/ PT AND SISTER WHO VERBALIZED UNDERSTANDING. NURSE SANDRO NOTIFIED. G8996 CK G8997 CK G8998 CK NOMS LEVEL 4
--- NOTE | 2019-04-09 16:15 | NUR ---
PAGING DR. RODRIGUEZ TO INFORM OF RECOMMENDATION OF SWALLOW EVAL TO HAVE PATIENT ON MECHANICAL SOFT DIET FINELY CHOPPED WITH NECTAR THICK LIQUIDS. PATIENT IS AWAKE AND ALERT SITTING UP IN BED NO SIGNS OF ANY DISTRESS, BREATHING IS EQUAL AND NON LABORED. PATIENT HAS FAMILY AT BEDSIDE. PATIENT HAS ALL SAFETY PRECAUTIONS IN PLACE. PATIENT HAS NO OTHER NEEDS AT THIS TIME. WILL CONTINUE TO MONITOR.
--- NOTE | 2019-04-09 16:30 | NUR ---
DR. RODRIGUEZ SPOKE WITH MD WOLF TO CHANGE DIET TO RECOMMENDATIONS.PATIENT AND FAMILY MADE AWARE.
[2019-04-09 16:52] VITALS: BP_SYST 122
--- NOTE | 2019-04-09 18:55 | NUR ---
RN CLOSING NOTE PATIENT IS AWAKE AND ALERT SITTING UP IN BED, NO SIGNS OF ANY DISTRESS,BREATHING IS EQUAL AND NON LABORED. PATIENT HAS ALL SAFETY PRECAUTIONS IN PLACE. NAGEL IS WITH PATIENT EDUCATED TO USE FOR ASSISTANCE. CABEZAS IS DRAINING TO GRAVITY. PATIENT HAS NO COMPLAINTS AT THIS TIME. PATIENT HAS SISTER AT BED SIDE. NO OTHER NEEDS AT THIS TIME.
[2019-04-09 20:00] VITALS: BP_SYST 95
[2019-04-10 00:16] VITALS: BP_SYST 114
[2019-04-10] MEDS: IPRATROPIUM BROM 0.5 MG/2.5 ML VIAL.NEB (ATROVENT) INH SCH ×3 (00:52→13:24)
[2019-04-10] MEDS: LevALBUTEROL HCL 1.25 MG/0.5 ML *CONC.* VIAL.NEB (XOPENEX CONC.) INH SCH ×3 (00:52→13:24)
--- NOTE | 2019-04-10 02:09 | NUR ---
Patient turned repositioned q2. No acute distress noted. Will continue to monitor.
[2019-04-10 03:06] LABS: HEPATITIS A AB, IgM Negative (Negative); HEPATITIS B CORE AB, IgM Negative (Negative); HEPATITIS B SURFACE AG Negative (Negative)
[2019-04-10 04:00] VITALS: BP_SYST 111
[2019-04-10] MEDS: 0.45% NACL 1,000 ML IV SCH (04:03)
[2019-04-10] MEDS: DILTIAZEM HCL 30 MG TABLET PO SCH ×2 (04:06→13:24)
[2019-04-10] MEDS: BISACODYL 10 MG/SUPPOSITORY RC PRN (04:09)
[2019-04-10] MEDS ORDERED: ACETAMINOPHEN 325 MG TABLET PO PRN (05:00)
[2019-04-10] MEDS ORDERED: ACETAMINOPHEN 325 MG TABLET ONE (05:28)
--- NOTE | 2019-04-10 06:25 | NUR ---
No change to patient's current assessment.
--- NOTE | 2019-04-10 07:25 | NUR ---
Initial notes: Patient awake, alert and oriented. Stable. Picc line in placed on Left arm. Discussed plan of care. Call light within reach. Safety measures in placed. Report received at bedside.
[2019-04-10 07:52] LABS: BASOPHILS % (AUTO) 0.1 % (0.0-2.0); EOSINOPHILS % (AUTO) 0.1 % (0.0-4.0); HEMATOCRIT 26.3 % (36-48); HEMOGLOBIN 8.8 g/dL (12.0-16.0); LYMPHOCYTES # (AUTO) 0.6 K/uL (1.0-5.5); LYMPHOCYTES % (AUTO) 6.6 % (20.5-51.5); MEAN CORPUSCULAR HEMOGLOBIN 30 pg (27-31); MEAN CORPUSCULAR HGB CONC 33 % (32-36); MEAN CORPUSCULAR VOLUME 90 fL (79.0-98.0); MONOCYTES # (AUTO) 0.5 K/uL (0.0-1.0); MONOCYTES % (AUTO) 5.2 % (1.7-9.3); PLATELET COUNT (AUTO) 83 K/uL (130-430); RED BLOOD CELL COUNT(AUTO) 2.94 MIL/uL (4.2-6.2)
[2019-04-10 07:53] LABS: C-REACTIVE PROTEIN QUANT 3.3 mg/dL (0-0.5); CALCIUM 7.7 mg/dL (8.4-11.0); CREATININE 0.46 mg/dL (0.55-1.30); POTASSIUM 3.8 mmol/L (3.5-5.1)
[2019-04-10 08:11] VITALS: BP_SYST 127
[2019-04-10 08:52] LABS: ERYTHROCYTE SEDIMENTATION RATE 13 MM/HR (0-20)
[2019-04-10] MEDS: ATORVASTATIN 20 MG TABLET PO SCH (08:54)
[2019-04-10] MEDS: CEFEPIME 1 GM in D5W 50 ML IV SCH (08:54)
[2019-04-10] MEDS: HYDROCORTISONE SOD SUCC 100 MG/2 ML VIAL IVP SCH (08:54)
[2019-04-10] MEDS: CITALOPRAM HYDROBROMIDE 20 MG TABLET PO SCH (08:55)
[2019-04-10] MEDS: CALCIUM 500 MG/TAB PO SCH (08:55)
--- NOTE | 2019-04-10 09:02 | NUR ---
rounds: patient having breakfast meal. Sister at bedside helping her eat. No distress noted.
[2019-04-10 12:45] VITALS: BP_SYST 102
--- NOTE | 2019-04-10 12:56 | NUR ---
rounds: Patient sleeping. No distress noted.
[2019-04-10] MEDS ORDERED: CAR30 PO (13:09)
[2019-04-10] MEDS ORDERED: DOXY100C PO (13:09)
--- NOTE | 2019-04-10 13:31 | NUR ---
d/c glasgow: Patient glasgow catheter removed per Dr Starr ordered.
--- NOTE | 2019-04-10 14:05 | NUR ---
Web Support Engineer Note Called to patient's room at patient and sister, Juliann, request. Met with patient and Juliann at bedside. They were told by the business office that they would need a letter signed by patient that it would be okay to discuss patient's billing after discharge. Spoke with Santa in Admitting. She will attempt to determine what letter is needed. Addendum: 04/10/19 at 1436 by Maria Del Carmen Segura [facility] Patient is able to communicate, mostly with nodding to answer questions. She agreed to having her sister, Juliann, work with the billing department or Admitting to resolve any billing questions. Patient signed a paper that attested to such and a copy was put in the chart. Juliann kept the original. A copy was given to Ariela in Admitting. She will answer any future questions. Gave Juliann Titus and my cards. Discussed with patient and Juliann about the advantages of signing a DPOA for health care. Patient seemed to be in agreement. Provided a DPOA for health care.
[2019-04-10 14:18] VITALS: BP_SYST 127
--- NOTE | 2019-04-10 15:16 | NUR ---
Void: Patient voided s/p d/c of fc.
--- NOTE | 2019-04-10 15:32 | NUR ---
D/C Patient Patient given medication reconciliation form and D/C instructions. Exit Care provided. Patient and sister verbalized understanding. MD discussed with patient the results and treatment provided. Patient unable to ambulate. Uses giovanny lift to trasfer to electric mobile chair for discharge to home. Patient in stable condition, ID band removed. PICC catheter removed, intact and dressing applied, no active bleeding. Electronic Prescription sent to preferred Pharmacy, [facility]. Patient educated on pain management. All belongings sent with patient.
[2019-04-10 16:06] LABS: ANTI NUCLEAR AB WITH REFLEX Negative (Negative)
[2019-04-11 12:10] LABS: ANTI-SMOOTH MUSCLE AB 9 Units (0-19)
== END 2019-04-10 15:30 | disposition home health service (06) | DRG 871 ==
LOC: SED 03:42 → SIC 06:42 → STU 04-08 19:11
PROVIDERS: ADMIT Preventive Medicine Preventive Medicine/Occupational Environmental Medicine; ATTEND Preventive Medicine Preventive Medicine/Occupational Environmental Medicine
PROC: 02HV33Z Insertion of Infusion Device into Superior Vena Cava, Percutaneous Approach (ICD-10-PCS; principal; 2019-04-07)
PROC: B548ZZA Ultrasonography of Superior Vena Cava, Guidance (ICD-10-PCS; 2019-04-07)
DX: A41.9 Sepsis, unspecified organism (principal); R65.21 Severe sepsis with septic shock; E43 Unspecified severe protein-calorie malnutrition; J96.00 Acute respiratory failure, unspecified whether with hypoxia or hypercapnia; J69.0 Pneumonitis due to inhalation of food and vomit; D61.818 Other pancytopenia; N13.6 Pyonephrosis; G82.20 Paraplegia, unspecified; E87.6 Hypokalemia; E78.5 Hyperlipidemia, unspecified; D69.6 Thrombocytopenia, unspecified; E83.52 Hypercalcemia; G35 Multiple sclerosis; R74.0 Nonspecific elevation of levels of transaminase and lactic acid dehydrogenase [LDH]; M85.80 Other specified disorders of bone density and structure, unspecified site; E83.51 Hypocalcemia; F79 Unspecified intellectual disabilities; I48.91 Unspecified atrial fibrillation; I12.9 Hypertensive chronic kidney disease with stage 1 through stage 4 chronic kidney disease, or unspecified chronic kidney disease; N18.9 Chronic kidney disease, unspecified; Z68.21 Body mass index [BMI] 21.0-21.9, adult; Z88.2 Allergy status to sulfonamides; Z79.899 Other long term (current) drug therapy; Z74.01 Bed confinement status
CPT/HCPCS: 36415; 71045; 74230; 76700-TC; 78226; 80048; 80053; 80074; 80076; 81000-TC; 82248-TC; 82272; 82607; 82728; 82746; 83010; 83516; 83540-TC; 83550-TC; 83605; 83615-TC; 83690-TC; 83880; 84484; 85007; 85025; 85027; 85044-TC; 85610-TC; 85651-TC; 85730-TC; 86038; 86140; 87040-TC; 87045-TC; 87046; 87081; 87086; 92610-GN; 92611-GN; 93005; 93306; 94640; 94760; 96361; 96365; 96367; 96368; 99291; A9537; C1751; G0378; J0456; J0692; J1720; J1940; J2405; J2543; J3370; J3475; J3480; J3490; J7030; J7040; J7060; J7612; Q9964; Q9967

== ENCOUNTER 2022-06-18 17:12 | Emergency (ER) | payer OTHER ==
[~2022-06-18] VITALS: Ht 170.2 cm; Wt 72.6 kg
[~2022-06-18 17:12] MED LIST: CALC200T47 PO; CAR30 PO; CHOL500037 PO; DOXY100C PO; ESCI10TA PO; METH1POW38 PO; ROSU10TA2 PO; TERI14TA2 PO; [UNRECOGNIZED DRUG - OTHER]
--- NOTE | 2022-06-18 18:08 | NUR ---
PATIENT TO ED AT THIS TIME WITH C/O FEVER LIKE SYMPTOMS. SISTER CAREGIVER AT BEDSIDE WITH PATIENT. STATES THEY HAD A FAMILY FRIEND THAT HAD FLU LIKE SYMPTOMS FOR ONE WEEK. PATIENT HR ELEVATED AT [address] ST ON THE MONITOR, IV INSERTED, LABS DRAWN AND BC X 2. WILL CONTINUE TO MONITOR PATIENT. LABS TO LAB AT THIS TIME
--- NOTE | 2022-06-18 18:15 | NUR ---
ER Dr. Hanna at bedside examining patient.
[2022-06-18 18:42] LABS: BASOPHILS % (AUTO) 0.3 % (0.0-2.0); EOSINOPHILS % (AUTO) 0.3 % (0.0-4.0); HEMATOCRIT 40.6 % (36-48); HEMOGLOBIN 13.3 g/dL (12.0-16.0); LYMPHOCYTES # (AUTO) 0.4 K/uL (1.0-5.5); LYMPHOCYTES % (AUTO) 6.2 % (20.5-51.5); MEAN CORPUSCULAR HEMOGLOBIN 28 pg (27-31); MEAN CORPUSCULAR HGB CONC 33 % (32-36); MEAN CORPUSCULAR VOLUME 85 fL (79.0-98.0); MONOCYTES # (AUTO) 0.8 K/uL (0.0-1.0); MONOCYTES % (AUTO) 12.4 % (1.7-9.3); NEUTROPHILS # (AUTO) 5.5 K/uL (1.8-7.7); NEUTROPHILS % (AUTO) 80.8 % (40.0-70.0); PLATELET COUNT (AUTO) 215 K/uL (130-430); RED BLOOD CELL COUNT(AUTO) 4.76 MIL/uL (4.2-6.2); RED CELL DISTRIBUTION WIDTH 16.5 % (9.0-15.0); WHITE BLOOD COUNT (AUTO) 6.8 K/uL (4.8-10.8)
[2022-06-18 18:44] LABS: ANION GAP 10 (5-15); CHLORIDE 103 mmol/L (98-107); CREATININE 0.31 mg/dL (0.55-1.30); GLUCOSE 111 mg/dL (70-99); UREA NITROGEN, BLOOD 18 mg/dL (8-21)
[2022-06-18 18:47] LABS: GFR AFRICAN AMERICAN 282 mL/min (>90)
[2022-06-18 18:51] LABS: ALANINE AMINOTRANSFERASE 41 U/L (12-78); ALBUMIN 3.4 g/dL (3.4-4.8); ASPARTATE AMINOTRANSFERASE 22 U/L (10-37); C-REACTIVE PROTEIN QUANT 3.8 mg/dL (0-0.5); TOTAL BILIRUBIN 0.4 mg/dL (0.0-1.0)
[2022-06-18] MEDS ORDERED: cefTRIAXone 1 GM in LIDOCAINE 1%, 20 ML MDV 2.1 ML IM ONE (20:45)
[2022-06-18] MEDS ORDERED: IBUPROFEN 800 MG TABLET PO ONE (20:45)
[2022-06-18] MEDS ORDERED: IBUP-1969 PO (20:45)
[2022-06-18 21:54] VITALS: BP_SYST 127
--- NOTE | 2022-06-18 21:58 | NUR ---
Patient given written and verbal discharge instructions and verbalizes understanding. ER MD Dr. Hanna discussed with patient the results and treatment provided. Patient in stable condition. ID arm band removed. Rx given. Patient educated on pain management and to follow up with PMD. Pain Scale 0. Opportunity for questions provided and answered. Medication side effect fact sheet provided.
--- NOTE | 2022-06-18 22:08 | NUR ---
Assisting assigned primary nurse with discharge. Dr. Hanna aware of patient's elevated temp of 102.7F. Dr. Hanna states that sister is to bring patient back to ER tomorrow at 2pm. Checked and verified that patient's sister is aware to return tomorrow at 2pm. Sister agreed to bring patient back for follow up. Okay to discharge.
--- NOTE | 2022-06-18 22:09 | NUR ---
Patient and patient's sister given written and verbal discharge instructions and verbalizes understanding. ER MD discussed with patient the results and treatment provided. Patient in stable condition. ID arm band removed. IV catheter removed intact and dressing applied, no active bleeding. Rx of ibuprofen given. Patient educated on pain management and to follow up with PMD. Opportunity for questions provided and answered.
[2022-06-19] MEDS ORDERED: LEVO-62 PO (16:31)
== END 2022-06-18 22:01 | disposition home or self-care (01) ==
LOC: SED 17:12
DX: R50.9 Fever, unspecified (principal); R05.9 Cough, unspecified; R11.0 Nausea; Z88.2 Allergy status to sulfonamides; Z79.899 Other long term (current) drug therapy
CPT/HCPCS: 99284; 74176; 71045; 80053; 85025; 86140; 87040; 84484; 36415; 93005; 76376; 96372; 83605; J0696; J2001

== ENCOUNTER 2022-06-19 14:13 | Emergency (ER) | payer OTHER ==
[~2022-06-19] VITALS: Ht 170.2 cm; Wt 72.6 kg
[~2022-06-19 14:13] MED LIST changes: +IBUP-1969 PO
[2022-06-19 14:18] VITALS: BP_SYST 106
[2022-06-19 15:25] LABS: BASOPHILS % (AUTO) 0.3 % (0.0-2.0); EOSINOPHILS % (AUTO) 0.3 % (0.0-4.0); HEMATOCRIT 42.6 % (36-48); HEMOGLOBIN 13.9 g/dL (12.0-16.0); LYMPHOCYTES # (AUTO) 0.8 K/uL (1.0-5.5); LYMPHOCYTES % (AUTO) 11.4 % (20.5-51.5); MEAN CORPUSCULAR HEMOGLOBIN 28 pg (27-31); MEAN CORPUSCULAR HGB CONC 33 % (32-36); MEAN CORPUSCULAR VOLUME 87 fL (79.0-98.0); MONOCYTES # (AUTO) 0.7 K/uL (0.0-1.0); MONOCYTES % (AUTO) 10.9 % (1.7-9.3); NEUTROPHILS # (AUTO) 5.1 K/uL (1.8-7.7); NEUTROPHILS % (AUTO) 77.1 % (40.0-70.0); PLATELET COUNT (AUTO) 212 K/uL (130-430); RED BLOOD CELL COUNT(AUTO) 4.91 MIL/uL (4.2-6.2); RED CELL DISTRIBUTION WIDTH 16.7 % (9.0-15.0); WHITE BLOOD COUNT (AUTO) 6.6 K/uL (4.8-10.8)
--- NOTE | 2022-06-19 15:53 | NUR ---
Patient brought in by caregiver from home. Recheck requested from previous ER visit this week. Pt states no longer with fever, no nausea. Pt is sitting in scooter without complaint.
[2022-06-19 15:59] LABS: CALCIUM 8.8 mg/dL (8.4-11.0); CREATININE 0.42 mg/dL (0.55-1.30)
--- NOTE | 2022-06-19 16:00 | NUR ---
ER at bedside examining patient.
[2022-06-19 16:04] LABS: ALBUMIN 3.3 g/dL (3.4-4.8); C-REACTIVE PROTEIN QUANT 9.4 mg/dL (0-0.5); TOTAL BILIRUBIN 0.3 mg/dL (0.0-1.0)
[2022-06-19] MEDS ORDERED: cefTRIAXone 1 GM in LIDOCAINE 1%, 20 ML MDV 2.1 ML IM ONE (16:30)
[2022-06-19] MEDS ORDERED: LEVO-62 PO (16:31)
--- NOTE | 2022-06-19 17:00 | NUR ---
Rocephin IM injection given per MD order. Pt tolerated well.
[2022-06-19 17:05] VITALS: BP_SYST 112
--- NOTE | 2022-06-19 17:14 | NUR ---
Patient given written and verbal discharge instructions and verbalizes understanding. ER MD discussed with patient the results and treatment provided. Patient in stable condition. ID arm band removed. Rx of Levaquin given.Opportunity for questions provided and answered. Medication side effect fact sheet provided.
== END 2022-06-19 17:14 | disposition home or self-care (01) ==
LOC: SED 14:13
DX: R50.9 Fever, unspecified (principal); J02.9 Acute pharyngitis, unspecified; Z88.2 Allergy status to sulfonamides; Z79.899 Other long term (current) drug therapy
CPT/HCPCS: 99283; 80053; 85025; 86140; 36415; 96372; 83605; J0696; J2001